=== PATIENT | male | born 1940 | race African-American/Black ===

== ENCOUNTER 2019-08-27 05:36 | Emergency (ER) | payer OTHER ==
[~2019-08-27] VITALS: Ht 182.9 cm; Wt 93.4 kg
[~2019-08-27 05:36] MED LIST: LISINOPRIL20 MG; LISINOPRIL40 MG; NORCO 5-325 TA1 EACH PO; WATER PILL
[2019-08-27 06:30] LABS: BE(vivo) -0.2 mmol/L (-2 to +3); HCO3 24.9 mmol/L (22.0-26.0); PCO2 42.2 mmHg (35.0-45.0); PO2 146.5 mmHg (80.0-100.0); pH 7.388 (7.360-7.450); sO2 98.9 % (92.0-98.0)
[2019-08-27 06:58] LABS: WBC 6.5 thou/uL (4.0-11.0)
[2019-08-27 06:59] VITALS: BP 174/76
[2019-08-27 07:00] LABS: ABSOLUTE NEUTROPHILS 4.5 thou/uL (1.4-8.2); BASOPHILS 0.6 % (0.0-2.0); EOSINOPHILS 4.1 % (0.0-3.0); HEMATOCRIT 45.8 % (42.0-52.0); LYMPHOCYTES 19.5 % (24.0-44.0); MCH 28.9 pg (26.0-34.0); MCHC 32.8 g/dL (28.0-37.0); MCV 88.2 fL (80.0-100.0); MONOCYTES 6.2 % (1.0-8.0); POLYS 69.6 % (36.0-66.0); RDW 17.1 % (10.5-14.5)
[2019-08-27 07:08] LABS: ANION GAP 8 mmol/L (7-16); BUN 22 mg/dL (7-18); CALCIUM 8.7 mg/dL (8.5-10.1); CHLORIDE 106 mmol/L (98-107); CO2 29 mmol/L (21-32); GLUCOSE 106 mg/dL (74-106); POTASSIUM 3.9 mmol/L (3.5-5.1); SODIUM 143 mmol/L (136-145)
[2019-08-27 07:19] LABS: ALBUMIN 3.4 g/dL (3.4-5.0); MAGNESIUM 2.3 mg/dL (1.8-2.4); SGOT 23 U/L (15-37); SGPT 20 U/L (30-65); TOTAL BILIRUBIN 0.8 mg/dL (<0.1-1.0); TOTAL PROTEIN 6.6 g/dL (6.4-8.2); TROPONIN-I <0.06 ng/mL (<0.06)
[2019-08-27 08:00] LABS: PLATELET COUNT 187 thou/uL (150-400); PLATELET ESTIMATE NORMAL
== END 2019-08-27 07:15 | disposition home or self-care (01) ==
LOC: ER 05:36
PROVIDERS: Emergency Medicine
DX: I61.9 Nontraumatic intracerebral hemorrhage, unspecified (principal); I10 Essential (primary) hypertension; R00.1 Bradycardia, unspecified; Z79.818 Long term (current) use of other agents affecting estrogen receptors and estrogen levels; Z88.7 Allergy status to serum and vaccine